=== PATIENT | female | born 1990 | race Two or more races ===

== ENCOUNTER 2025-01-25 16:51 | Emergency (ER) | payer OTHER, SELFPAY ==
[2025-01-25 16:52] VITALS: BMI 29.0
[2025-01-25 17:02] VITALS: BP 114/79; PULSE 79; RESP 16; TEMP 37.1; O2SAT 98
--- NOTE | 2025-01-25 17:10 | PD.EDLOWEX ---
Lower Extremity Injury RME/HPI General Chief Complaint: Extremity Injury, Upper Stated Complaint: R ELBOW & R KNEE PAIN S/P FALL AT WORK Time Seen by Provider: 01/25/25 17:09 Arrival date/time: 01/25/25 16:51 RME / HPI RME / HPI Narrative: Healthy 34-year-old female presents to the ER complaining of twisting her right ankle and falling down a ramp landing on her right elbow and wrist. Denies head injury, numbness, tingling, weakness. Related Data Home Medications ?Medication ?Instructions ?Recorded ?Confirmed [id number] 1 mg 1 tab PO QDAY 12/11/22 12/11/22 tablet Allergies Allergy/AdvReac Type Severity Reaction Status Date / Time No Known Allergies Allergy Verified 01/25/25 16:54 ED Exam Narrative Physical exam: Constitutional: Patient alert, oriented, in no acute distress. Head/Face: Normocephalic, atraumatic. Scalp atraumatic. No hematomas or step-offs. Face symmetric. No raccoon eyes bilaterally. No patricia signs bilaterally. Eyes: Conjunctiva clear bilaterally. Sclera anicteric bilaterally. Pupils equal, round, and reactive to light bilaterally. Extraocular movements intact bilaterally. Mouth/Throat: Moist mucous membranes. No stridor or muffled voice. No trismus. Handling secretions without difficulty. Airway widely patent. Neck: Trachea midline. Supple. No JVD. No midline tenderness or step-offs. No nuchal rigidity. Chest: Symmetric chest rise. Breath sounds equal bilaterally. No tenderness, deformity, or crepitus. Cardiovascular: RRR. Normal S1/S2. No murmurs or rubs. Radial pulses intact bilaterally. Abdomen: Soft. Non-distended. Non-tender throughout. No pulsatile mass. No rebound or guarding. Pelvis: Stable and non-tender to compression. No deformity. Back: No CVA tenderness bilaterally. No midline spinal tenderness. No step-offs. Upper Extremities: No gross deformities. No focal motor or sensory deficits bilaterally. Positive tenderness to palpation and mild edema noted to right wrist and elbow along with mild limited range of motion and strength 4+ out of 5 secondary to pain. Compartments remain soft. Radial pulse 2+ regular rate and rhythm. Lower Extremities: No gross deformities. No focal motor or sensory deficits bilaterally. Right lower leg lateral just distal to the knee with mild tenderness to palpation, ecchymosis, abrasion, edema. Compartments remain soft. Mild limited range of motion, strength 4+5 secondary to pain for right ankle. Posterior tibialis pulse 2+ regular rate and rhythm. Neuro: Alert and oriented. Speech normal. CN II?XII grossly intact. GCS 15. Skin: Warm, dry, normal color. Course Course Course Narrative: MDM This patient sustained a fall that appears to be primarily mechanical in nature and not due to a serious acute medical condition. Other than what is mentioned in the diagnosis, no serious injury has been identified. Concern for soft tissue injury (contusion, strain, or sprain) of R elbow, R wrist, R ankle. Extremities remain distally neurovascularly intact with soft compartments. Doubt occult fracture or dislocation however can not exclude. X-ray without gross fracture or dislocation. Plan for sugar-tong splint, sling, Aircast. Rest, ice, elevation, pain management as needed. Patient advised to perform Codman's exercises 20 minutes time twice daily while utilizing sling as needed comfort. Thorough head-to-toe primary and secondary surveys have been performed, and the patient is felt to be at very low risk for delayed serious injury. The patient has been instructed to return immediately for new or unexpected symptoms. Symptomatic treatment provided and follow-up with PMD and ortho in 1?2 days recommended. Strict ER return precautions advised. The patient has demonstrated the ability to ambulate safely since the initial fall. Quality Measures none Orders Category Date Time Status Splint / Immobilizer STAT Care 01/25/25 20:19 Completed XR ankle RT 2V Stat Exams 01/25/25 17:11 Completed XR elbow comp RT min 3V Stat Exams 01/25/25 17:11 Completed XR forearm RT 2V Stat Exams 01/25/25 17:11 Completed XR tibia fibula RT 2V Stat Exams 01/25/25 17:15 Completed XR wrist RT 2V Stat Exams 01/25/25 17:11 Completed HCG Qualitative,Urine Stat Lab 01/25/25 18:10 Completed Ketorolac Inj [Toradol Inj] Med 01/25/25 17:11 Discontinued 30 mg IM X1 ONE Reevaluation(s) Reevaluation #1: At the time of reassessment, the patient remains alert and oriented ?3 with GCS 15. Vitals are normal, pain is controlled, and the patient is tolerating oral intake without nausea or vomiting. The patient is agreeable to discharge and verbalizes understanding of the diagnosis, studies, treatment plan, medications (including side effects/precautions), and strict ER return precautions as discussed in the ED. All concerns were addressed, and the patient is comfortable with the plan. Vital Signs Vital signs: Vital Signs Temperature 98.7 F 01/25/25 17:02 Pulse Rate 79 01/25/25 17:02 Respiratory Rate 16 01/25/25 17:02 Blood Pressure 114/79 01/25/25 17:02 Pulse Oximetry (%) 98 01/25/25 17:02 Oxygen Delivery Method Room Air 01/25/25 17:02 Extremity Injury, Lower Patient data External records reviewed:: [facility] previous records Clinical information provided by:: patient Social determinants that could affect healthcare access:: none Patient has the following chronic illnesses:: As noted How is presenting disease/condition affected by chronic disease/condition?: uneffected by Evaluation data The following diagnostics were reviewed and interpreted by me:: radiology exam(s) Lab and/or radiology exams considered but not ordered:: Additional Labs and radiology considered, but not ordered as they were not clinically indicated at this time. Interpretation Summary: X-rays without gross fracture or dislocation Medications / Prescriptions Medications or Prescriptions considered but not ordered:: I considered prescription management (both outpatient prescriptions AND drug treatment in the ER) and decided that this was necessary and was prescribed as charted. Medication administrations:: Medication Administration History Discontinued Medications Ketorolac Tromethamine (Ketorolac Inj 30 Mg/Ml Vial) 30 mg IM X1 ONE Stop: 01/25/25 17:12 Last Admin: 01/25/25 19:12 Dose: Not Given Documented By: Non-Admin Reason: Patient Refused As noted Consultations Consultation(s) initiated? (list below): No Diagnosis Most likely diagnosis given after review of the tests above:: As noted Admission Indicated Admission indicated?: not indicated Admission Request Was there a request for admission?: No Disposition Plan Disposition Plan: Discharge Discharge Attestation Discharge Attestation: The patient and all family members were given an opportunity to ask questions and understood the discharge instructions. Discharge instructions specifically effects, indications for sooner follow up or return to the emergency department, and the expected course of current diagnosis. Patient condition: Stable Discharge Plan Plan Patient Disposition: HOME (Self Care) Patient condition on transfer: Stable Prescriptions/Referrals Prescriptions/Med Rec: No Action [id number] 1 mg Tablet 1 tab PO QDAY Referrals: No Primary/Family,Physician [Primary Care Provider] - In 1 week Problem List Clinical Impression: Elbow sprain, Sprain of right wrist, Ankle sprain Patient/Caregiver Discharge Instructions Education Materials: ED Sprain, Elbow, ED Wrist Sprain, ED Ankle Sprain (Adult) Additional Instructions: Follow up with your primary medical doctor and an orthopedic doctor within 24 hours. Return to the Emergency Room immediately for any new, worsening, continuing symptoms or any concerns at all. Return to the Emergency Room within 24 hours if you are unable to follow up with your primary medical doctor and an orthopedic doctor within 24 hours. Perform Codman's exercises 20 minutes time twice daily when using sling as needed for comfort. Print Language: Slovenian Stand Alone Forms: Effie Award Info., Patient Portal Info Letter PA/RAP ARTIST Supervising Physician PA/RAP ARTIST Supervising Physician: Dr. López
--- NOTE | 2025-01-25 17:11 | XR_ITS ---
EXAMINATION: Ankle, right 2 views. Technique: AP lateral right ankle 2 views Date and time: January 25, 2025, 1902 hours INDICATIONS: Patient fell today with injury to the ankle, ankle pain. FINDINGS: No acute fracture No dislocation No foreign body IMPRESSION: No acute fracture
--- NOTE | 2025-01-25 17:11 | XR_ITS ---
Examination: Forearm, right, 2 views. Technique: Forearm, AP, lateral 2 views Date and time of exam: January 25, 2025, 1852 hours INDICATIONS: Patient fell today with injury to the forearm, forearm pain. FINDINGS: No fracture or dislocation. No foreign body IMPRESSION: No fracture or dislocation
--- NOTE | 2025-01-25 17:11 | XR_ITS ---
Examination: Right elbow 3 views Technique: Elbow AP, oblique, lateral 3 views Exam date and time: January, 185 hours INDICATIONS: Patient fell today with injury to the elbow, elbow pain. FINDINGS: No fracture or dislocation. No foreign body IMPRESSION: No fracture or dislocation.
--- NOTE | 2025-01-25 17:11 | XR_ITS ---
EXAMINATION: Right wrist 2 views TECHNIQUE: AP lateral right wrist 2 views Date and time: January 25, 2025, 1853 hours INDICATIONS: Patient fell today with injury to the wrist, wrist pain. FINDINGS: No fracture or dislocation. No foreign body IMPRESSION: No fracture or dislocation
--- NOTE | 2025-01-25 17:15 | XR_ITS ---
Examination: Tibia-Fibula, right, 2 views Technique: Tibia-fibula AP lateral 2 views Date and time of exam: January 25, 2025, 1852 hours INDICATION: Patient fell today with injury to the lower leg, lower leg pain. FINDINGS: No fracture or dislocation No foreign body IMPRESSION: No fracture or dislocation
[2025-01-25 18:41] LABS: HCG Qualitative,Urine Negative
== END 2025-01-25 22:23 | disposition home or self-care (01) ==
PROVIDERS: Physician Assistant; Emergency Provider Family Medicine
DX: S63.501A Unspecified sprain of right wrist, initial encounter (principal); S93.401A Sprain of unspecified ligament of right ankle, initial encounter; S53.401A Unspecified sprain of right elbow, initial encounter; X50.1XXA Overexertion from prolonged static or awkward postures, initial encounter; W19.XXXA Unspecified fall, initial encounter
CPT/HCPCS: 73080; 73090; 73100; 73590; 73600; 81025; 99282